=== PATIENT | male | born 1965 | race Caucasian/White ===

== ENCOUNTER 2017-01-17 14:38 | Inpatient (IN) | payer OTHER ==
[~2017-01-17] VITALS: Ht 188 cm; Wt 93.0 kg
[2017-01-17] MEDS ORDERED: ASPIRIN 325 MG TAB PO STA (15:24)
[2017-01-17] MEDS ORDERED: NITROGLYCERIN (SL) 0.4 MG TAB SL PRN (15:30)
--- NOTE | 2017-01-17 15:37 | ERA ---
ER Documentation Chief Complaint Date/Time DATE: 01/17/17 TIME: 15:37 Chief Complaint 6/10 CP and sob x 4 hours HPI This is a 51-year-old female with a history of gastroesophageal reflux disease and hypertension who presents to the emergency department complaining of a sudden onset of chest pressure that occurred roughly 4 hours prior to arrival. The patient states the chest pain is nonexertional. He works as a nurse at [email or web address] and indicates while at work sitting down he developed a sudden onset of chest pressure that did not radiate to the neck arm back or jaw. He stated was 6 out of 10 in intensity. It associated symptoms of shortness of breath and has not experienced any recent travel or prolonged immobilization and no calf tenderness or swelling. He has been compliant with all of his medications. He has no family history of coronary artery disease in his first-degree relatives. The patient does not smoke tobacco. He has had a previous cholecystectomy, tonsillectomy and rhinoplasty with respect to his past surgical history. He denies any fever shaking or chills. Denies any recent remote blunt or penetrating chest trauma. He states he has never had any similar symptoms in the past. The patient did undergo a cardiac stress test roughly 4 years ago ROS All systems reviewed and are negative except as per history of present illness. Medications Home Meds Reported Medications Emtricitabine-Tenofovir* (Truvada*) 200-300 Mg Tablet, 1 TAB PO DAILY, TAB 01/17/17 Tadalafil (Cialis) 5 Mg Tablet, 5 MG PO DAILY, TAB 01/17/17 Esomeprazole Mag Trihydrate (Nexium) 40 Mg Capsule.dr, 40 MG PO DAILY, #30 CAP 01/17/17 Hydrochlorothiazide* (Hydrochlorothiazide*) 12.5 Mg Tablet, 12.5 MG PO DAILY, # 30 TAB 01/17/17 Ramipril (Ramipril) 5 Mg Capsule, 5 MG PO DAILY, CAP 01/17/17 Loratadine* (Loratadine*) 10 Mg Tablet, 10 MG PO DAILY, #30 TAB 01/17/17 Ranitidine Hcl* (Ranitidine Hcl*) 300 Mg Tablet, 300 MG PO HS, #30 TAB 01/17/17 Allergies Allergies: Uncoded Allergies: ERYTHTHOMYCIN (Allergy, Unknown, 01/17/17) PMhx/Soc History of Surgery: Yes (GALLBLADDER SURGERY) Anesthesia Reaction: No Hx Neurological Disorder: No Hx Respiratory Disorders: No Hx Cardiac Disorders: No Hx Psychiatric Problems: No Hx Miscellaneous Medical Probl: No Hx Alcohol Use: Yes (OCCASIONALLY) Hx Substance Use: No Hx Tobacco Use: No Smoking Status: Never smoker Physical Exam Vitals Vital Signs Date Time Temp Pulse Resp B/P Pulse Ox O2 Delivery O2 Flow Rate FiO2 01/17/17 16:55 49 14 130/88 97 Nasal Cannula 3.0 01/17/17 14:39 98.3 57 20 127/77 98 Physical Exam Constitutional:Well-developed. Well-nourished. HEENT:Normocephalic. Atraumatic.Pupils were equal round reactive to light. Moist mucous membranes.No tonsillar exudates. Neck: No nuchal rigidity. No lymphadenopathy. No posterior cervical spine tenderness or step-offs. Respiratory: Not using accessory muscles of respiration.Lungs were clear to auscultation bilaterally. No rhonchi. No rales. No wheezing. Cardiovascular: Regular rate regular rhythm.No murmurs. No rubs were appreciated.S1, S2 normal. Distal pulses are palpable 2+ bilaterally. GI: Abdomen was soft. Nontender. Non Distended. No pulsatile abdominal masses or bruits. No rebound. No guarding. Bowel sounds were present and normal. Muscle skeletal: Full range of motion of both the upper and lower extremities bilaterally.Normal muscle tone.No assymetrical calf tenderness or swelling. Skin: No petechia, no purpura. No lesions on the palms or the soles of the feet. No maculopapular rash. NEURO: Patient was alert, awake, orientated x3.No facial droop. Gait observed and normal with no ataxia.Speech had regular rate and rhythm. No focal neurological deficits. Result Diagram: 01/17/17 1530 01/17/17 1530 Results 24 hrs Laboratory Tests Test 01/17/17 15:30 White Blood Count 6.810^3/ul Red Blood Count 4.6710^6/ul Hemoglobin 15.5g/dl Hematocrit 43.8% Mean Corpuscular Volume 93.8fl Mean Corpuscular Hemoglobin 33.2pg Mean Corpuscular Hemoglobin Concent 35.4g/dl Red Cell Distribution Width 12.4% Platelet Count 53085^3/UL Mean Platelet Volume 11.2fl Neutrophils % 50.7% Lymphocytes % 36.4% Monocytes % 9.5% Eosinophils % 2.5% Basophils % 0.6% Nucleated Red Blood Cells % 0.0/100WBC Neutrophils # 3.510^3/ul Lymphocytes # 2.510^3/ul Monocytes # 0.710^3/ul Eosinophils # 0.210^3/ul Basophils # 0.010^3/ul Nucleated Red Blood Cells # 0.010^3/ul Prothrombin Time 13.2Sec Prothrombin Time Ratio 1.0 INR International Normalized Ratio 1.00 Activated Partial Thromboplast Time 27.9Sec D-Dimer < 220.00ng/ml D-Dimer Comment Sodium Level 144mmol/L Potassium Level 3.6mmol/L Chloride Level 100mmol/L Carbon Dioxide Level 29mmol/L Anion Gap 19 Blood Urea Nitrogen 7mg/dl Creatinine 0.85mg/dl Glucose Level 75mg/dl Calcium Level 9.8mg/dl Total Bilirubin 0.3mg/dl Direct Bilirubin 0.00mg/dl Indirect Bilirubin 0.3mg/dl Aspartate Amino Transf (AST/SGOT) 58IU/L Alanine Aminotransferase (ALT/SGPT) 89IU/L Alkaline Phosphatase 70IU/L Creatine Kinase 103IU/L Creatine Kinase Index 0.8 Creatinine Kinase MB (Mass) 0.85ng/ml Troponin I < 0.012ng/ml B-Type Natriuretic Peptide 60PG/ML Total Protein 7.9g/dl Albumin 4.8g/dl Globulin 3.10g/dl Albumin/Globulin Ratio 1.54 Current Medications Medications (Trade) Dose Ordered Sig/Jimenez Route PRN Reason Start Time Stop Time Status Last Admin Dose Admin Aspirin (Aspirin) 325 mg ONCE STAT PO 01/17/17 15:24 01/17/17 15:27 DC 01/17/17 15:46 Nitroglycerin (Nitroglycerin (Sl Tab) 0.4 Mg) 1 tab Q5M UP TO 3 DOSES PRN SL CHEST PAIN 01/17/17 15:30 01/17/17 15:47 Ondansetron HCl (Zofran Inj) 4 mg ER BRIDGE PRN IV NAUSEA AND/OR VOMITING 01/17/17 17:00 01/18/17 16:59 Acetaminophen (Tylenol Tab) 650 mg ER BRIDGE PRN PO MILD PAIN/FEVER 01/17/17 17:00 01/18/17 16:59 Procedures/MDM The patient presented to the emergency department with chest pain. My clinical evaluation and workup was to distinguish minor causes of chest pain from acute life threatening conditions such as myocardial infarction, pulmonary embolism, aortic dissection, esophageal rupture, cardiac tamponade. The patient was placed on a library monitor and continuous pulse oximetry. IV access established by nursing staff. The patient received aspirin and nitroglycerin. 12 Lead EKG tracing ordered and reviewed by myself showed: Sinus bradycardia 53 bpm and no arrhythmia. [place] interval normal. QRS duration normal with incomplete right bundle branch block as there was an RSR prime pattern in lead V1 V2 No ST segment elevation No ST segment depression. No changes consistent with acute ischemia. The patient is a low pretest probability according to the well's criteria for pulmonary embolism. Therefore I obtained a d-dimer. The d-dimer was within normal limits and therefore my clinical suspicion was low for pulmonary embolism and I did not feel is necessary at this time to obtain a CT scan of the patient's chest. The patient will be admitted to the hospitalist Dr. Leyva to the telemetry service to receive serial 12-lead EKG tracings and cardiac set of enzymes Departure Diagnosis: Primary Impression: Chest pain Qualified Code: R07.9 - Chest pain, unspecified type Condition: Serious CALVIN FRAUSTO Jan 17, 2017 15:37
[2017-01-17 15:47] LABS: BASOPHILS % 0.6 % (0.0-2.0); EOSINOPHILS # 0.2 10^3/ul (0.0-0.5); EOSINOPHILS % 2.5 % (0.0-7.0); HEMATOCRIT 43.8 % (42.0-52.0); HEMOGLOBIN 15.5 g/dl (14.0-18.0); LYMPHOCYTES # 2.5 10^3/ul (0.8-2.9); LYMPHOCYTES % 36.4 % (15.0-51.0); MEAN CORPUSCULAR HEMOGLOBIN 33.2 pg (29.0-33.0); MEAN CORPUSCULAR HGB CONC 35.4 g/dl (32.0-37.0); MEAN CORPUSCULAR VOLUME 93.8 fl (82.0-101.0); MEAN PLATELET VOLUME 11.2 fl (7.4-10.4); MONOCYTE # 0.7 10^3/ul (0.3-0.9); MONOCYTES % 9.5 % (0.0-11.0); NEUTROPHIL # 3.5 10^3/ul (1.6-7.5); NEUTROPHILS % 50.7 % (39.0-77.0); PLATELET COUNT 265 10^3/UL (140-415); RED BLOOD COUNT 4.67 10^6/ul (4.70-6.10); RED CELL DISTRIBUTION WIDTH 12.4 % (11.5-14.5); WHITE BLOOD COUNT 6.8 10^3/ul (4.8-10.8)
[2017-01-17] MEDS ORDERED: RANI300T PO (15:48)
[2017-01-17] MEDS ORDERED: LORA10TA3 PO (15:49)
[2017-01-17] MEDS ORDERED: RAMI5CAP46 PO (15:49)
[2017-01-17] MEDS ORDERED: TADA5TAB5 PO (15:50)
[2017-01-17] MEDS ORDERED: HYDR12.58 PO (15:50)
[2017-01-17] MEDS ORDERED: ESOM40CA PO (15:50)
[2017-01-17] MEDS ORDERED: EMTR1TAB11 PO (15:51)
--- NOTE | 2017-01-17 16:00 | RADRPT ---
PROCEDURE: XR Chest. CLINICAL INDICATION: Chest pain. TECHNIQUE: Single frontal view. COMPARISON: None. FINDINGS: The lungs are clear. The heart size is normal. There is no pleural effusion. There is no pneumothorax. IMPRESSION: 1. Normal chest radiograph. RPTAT: QQ .Campbell Saunders MD, Date Time Electronically viewed and signed by .Campbell Saunders MD, on 01/17/2017 16:00 .R/
[2017-01-17 16:02] LABS: PROTIME 13.2 Sec (12.2-14.2)
[2017-01-17 16:03] LABS: PARTIAL THROMBOPLASTIN TIME 27.9 Sec (25.0-35.0)
[2017-01-17 16:04] LABS: ALANINE AMINOTRANSFERASE 89 IU/L (13-69); ALBUMIN 4.8 g/dl (3.3-4.9); ALBUMIN/GLOBULIN RATIO 1.54; ALKALINE PHOSPHATASE 70 IU/L (42-121); ANION GAP 19 (8-16); ASPARTATE AMINO TRANSFERASE 58 IU/L (15-46); BILIRUBIN,INDIRECT 0.3 mg/dl (0-1.1); BILIRUBIN,TOTAL 0.3 mg/dl (0.2-1.3); BLOOD UREA NITROGEN 7 mg/dl (7-20); CALCIUM 9.8 mg/dl (8.4-10.2); CARBON DIOXIDE 29 mmol/L (21-31); CHLORIDE 100 mmol/L (97-110); CREATINE KINASE 103 IU/L (23-200); CREATININE 0.85 mg/dl (0.61-1.24); GLUCOSE 75 mg/dl (70-220); POTASSIUM 3.6 mmol/L (3.5-5.1); SODIUM 144 mmol/L (135-144); TOTAL PROTEIN 7.9 g/dl (6.1-8.1)
[2017-01-17 16:16] LABS: B-TYPE NATRIURETIC PEPTIDE 60 PG/ML (0-125)
[2017-01-17 16:17] LABS: CK-MB 0.85 ng/ml (0.0-2.4); TROPONIN-I < 0.012 ng/ml (0.00-0.12)
[2017-01-17 16:53] LABS: D-DIMER < 220.00 ng/ml (<460)
[2017-01-17] MEDS ORDERED: ACETAMINOPHEN 325 MG TAB PO PRN (17:00)
[2017-01-17] MEDS ORDERED: ONDANSETRON 4 MG INJ IV PRN (17:00)
[2017-01-17 18:39] VITALS: TEMP 98.3
--- NOTE | 2017-01-17 18:46 | HP ---
Date/Time of Note Date/Time of Note DATE: 01/17/17 TIME: 18:30 Assessment/Plan VTE Prophylaxis VTE Prophylaxis Intervention: LMWH Lines/Catheters IV [facility] Saline Lock Assessment/Plan Chief Complaint/Hosp Course Mr. Aden is a 51-year-old male with a history of hypertension and GERD who is presenting with an atypical chest pain syndrome. It is unlikely that this is due to coronary ischemia given his atypical symptoms and negative biomarkers. There is no clear alternative explanation to his symptoms however. Coronary vasospasm should be considered. His bradycardia and incomplete right bundle branch block in the setting of chronic orthostasis raise concern for conduction disease however she has never had syncope. Atypical chest pain syndrome: - Monitor on telemetry - Cardiology c/s for consideration of coronary vasopasm. Unlikely to benefit from stress test though can also be considered - Cycle troponins - TTE Resting bradycardia - TSH Hypertension: - Can continue home meds: HCTZ 12.5 and ramipril 5 Transaminitis: - Unclear etiology, will trend LFTs and check viral serologies GERD: - Continue ranitidine and PPI Discharge to self care likely tomorrow Problems: HPI/ROS Admit Date/Time Admit Date/Time Hx of Present Illness Mr. Aden is a 51-year-old male with a history of GERD and hypertension who presents with chest pain syndrome which started this afternoon. The patient is an employee of [employer]. He was at work today when he began to feel the onset of what he describes as spasms in his chest lasting a few seconds at a time these were associated with mild shortness of breath he cannot identify any exacerbating or alleviating factors. The pain is present at rest including when I spoke with him in the emergency room. The patient describes excellent exercise tolerance. He works out at the gym most days of the week most recently 2 days ago. He also describes subjective orthostasis chronically saying he often feels dizzy when he stands and he is known to have a low resting heart rate. He has never had syncope. He denies any recent illness and has otherwise felt well recently. PMH/Family/Social Past Medical History Medical History: GERD, hypertension Past Surgical History Past Surgical Hx: noncontributory Family History Significant Family History: no pertinent family hx Social History Alcohol Use: none Smoking Status: Never smoker Drug Use: none Exam/Review of Systems Vital Signs Vitals Vital Signs Date Time Temp Pulse Resp B/P Pulse Ox O2 Delivery O2 Flow Rate FiO2 01/17/17 16:55 49 14 130/88 97 Nasal Cannula 3.0 01/17/17 14:39 98.3 Exam Exam The patient appears very well on exam. He is resting in no acute distress. He is alert and oriented 3. He is pleasant and conversational. He has flat neck veins. His heart rate is bradycardic and regular. There are no abnormal heart sounds. He has no chest wall tenderness. His lungs are clear to auscultation bilaterally and his breathing pattern is nonlabored. His abdomen is soft and nontender. He has no peripheral edema. Labs Result Diagram: 01/17/17 1530 01/17/17 1530 Medications Medications Current Medications Enoxaparin Sodium (Lovenox) 40 mg DAILY SC ; Start 01/18/17 at 09:00; Status UNV Procedures Procedures EKG: Sinus bradycardia, incomplete RBBB, no ST changes or TWI NICOLE MAJOR MD Jan 17, 2017 18:40
[2017-01-17 19:44] LABS: HAAIG REFLEX REFLEX FILED
[2017-01-17 20:29] LABS: D-DIMER < 220.00 ng/ml (<460)
[2017-01-17 20:58] LABS: HEPATITIS B CORE ANTIBODY NEGATIVE (NEGATIVE)
[2017-01-17] MEDS ORDERED: RANITIDINE 150 MG TAB PO SCH (21:00)
[2017-01-17 21:14] VITALS: PULSE 45
[2017-01-17 21:37] VITALS: BP 121/81; RESP 18
[2017-01-17 21:38] VITALS: Ht 188 cm; Wt 93.0 kg
[2017-01-18] VITALS (10 sets, daily range): BP systolic 107–121; BP diastolic 66–74; PULSE 44–55; RESP 18–20
[2017-01-18] MEDS ORDERED: PANTOPRAZOLE (EC) 40 MG TAB PO SCH (06:00)
[2017-01-18 07:58] LABS: BASOPHILS % 0.5 % (0.0-2.0); EOSINOPHILS # 0.2 10^3/ul (0.0-0.5); HEMATOCRIT 41.3 % (42.0-52.0); HEMOGLOBIN 14.4 g/dl (14.0-18.0); LYMPHOCYTES # 2.2 10^3/ul (0.8-2.9); LYMPHOCYTES % 36.5 % (15.0-51.0); MEAN CORPUSCULAR HEMOGLOBIN 33.1 pg (29.0-33.0); MEAN CORPUSCULAR HGB CONC 34.9 g/dl (32.0-37.0); MEAN CORPUSCULAR VOLUME 94.9 fl (82.0-101.0); MEAN PLATELET VOLUME 11.4 fl (7.4-10.4); MONOCYTE # 0.7 10^3/ul (0.3-0.9); MONOCYTES % 11.7 % (0.0-11.0); NEUTROPHIL # 2.9 10^3/ul (1.6-7.5); PLATELET COUNT 262 10^3/UL (140-415); RED BLOOD COUNT 4.35 10^6/ul (4.70-6.10); RED CELL DISTRIBUTION WIDTH 12.4 % (11.5-14.5); WHITE BLOOD COUNT 6.1 10^3/ul (4.8-10.8)
[2017-01-18 08:20] LABS: CREATINE KINASE 74 IU/L (23-200)
[2017-01-18 08:23] LABS: ALBUMIN 3.8 g/dl (3.3-4.9); BILIRUBIN,INDIRECT 0.3 mg/dl (0-1.1); BILIRUBIN,TOTAL 0.3 mg/dl (0.2-1.3); TOTAL PROTEIN 6.2 g/dl (6.1-8.1)
[2017-01-18 08:40] LABS: CK-MB 0.51 ng/ml (0.0-2.4); TROPONIN-I < 0.012 ng/ml (0.00-0.12)
[2017-01-18 08:50] LABS: ALBUMIN/GLOBULIN RATIO 1.6; BILIRUBIN,INDIRECT 0.2 mg/dl (0-1.1); BILIRUBIN,TOTAL 0.2 mg/dl (0.2-1.3); CALCIUM 9.3 mg/dl (8.4-10.2); CHOL/HDL RATIO 4.8 RATIO; CREATININE 0.89 mg/dl (0.61-1.24); POTASSIUM 4.3 mmol/L (3.5-5.1); TOTAL PROTEIN 6.5 g/dl (6.1-8.1)
[2017-01-18] MEDS ORDERED: BENAZEPRIL 20 MG TAB PO SCH (09:00)
[2017-01-18] MEDS ORDERED: ENOXAPARIN 40 MG/0.4 ML SYG SC SCH (09:00)
[2017-01-18] MEDS ORDERED: HYDROCHLOROTHIAZIDE 12.5 MG CAP PO SCH (09:00)
[2017-01-18] MEDS ORDERED: EMTRICITABINE/TENOFOVIR TAB PO SCH (09:00)
[2017-01-18] MEDS ORDERED: LORATADINE 10 MG TAB PO SCH (09:00)
--- NOTE | 2017-01-18 13:56 | RADRPT ---
Echocardiogram Report Patient Name: MIRANDA TOBIN Gender: Male Date: 1965 Study Date: 18-Jan-2017 Java Project Manager: Jairo Sterling [facility] Location: [id number] Ref. Physician: NICOLE MAJOR Quality: Good Procedures: Transthoracic echocardiogram with complete 2D, M-Mode, and doppler examination. Indications: incomplete RBBB. Bradycardia. Atypical Chest Pain. 2D/M Mode Doppler Measurement Value Normal Ranges Measurement Value Normal Ranges LVIDd 2D 4.8 3.5 - 5.6 cm AV Peak Durga 1.3 m/sec LVIDs 2D 2.6 2.1 - 4.1 cm AV Peak PG 7.2 mmHg LVPWd 2D 1.0 0.6 - 1.1 cm LVOT Peak Durga 1.0 m/sec IVSd 2D 1.1 0.6 - 1.1 cm LVOT Peak PG 4.2 mmHg AoR Diam 2D 3.0 2.0 - 3.7 cm MV E Peak Durga 0.6 m/sec EDV 2D 107.6 cm3 MV A Peak Durga 0.5 m/sec ESV 2D 17.9 cm3 MV E/A 1.1 LA Dimen 2D 2.7 2.3 - 4.0 cm MV Decel Time 141 msec MV Decel [place] 4 MV E/A 1.1 TR Peak Durga 2.6 m/sec TR Peak PG 28.0 mmHg RVSP 31.0 mmHg Findings Left Ventricle: Normal left ventricular systolic function. Normal left ventricular cavity size. Normal left ventricular wall thickness. Ejection fraction is visually estimated at 60 %. Right Ventricle: Normal right ventricular size. Normal right ventricular systolic function. Left Atrium: The left atrium is normal in size. Right Atrium: The right atrium is normal in size. Mitral Valve: Mitral valve leaflets appear mildly thickened. Mild mitral annular calcification. Trace mitral regurgitation. Aortic Valve: Normal appearance of the aortic valve. No significant aortic stenosis or insufficiency. Tricuspid Valve: Normal appearance of the tricuspid valve. Estimated peak PA systolic pressure 31 mmHg. There is trace tricuspid regurgitation. Pulmonic Valve: Normal pulmonic valve appearance. There is trace pulmonic regurgitation. Pericardium: Normal pericardium with no significant pericardial effusion. Aorta: Normal aortic root. IVC: Normal size and normal respiratory collapse consistent with normal right atrial pressure. Conclusions Normal left ventricular systolic function. Normal left ventricular cavity size. Normal left ventricular wall thickness. Ejection fraction is visually estimated at 60 %. Normal right ventricular size. Normal right ventricular systolic function. The left atrium is normal in size. The right atrium is normal in size. No significant valvular stenosis or regurgitation seen. Normal pericardium with no significant pericardial effusion. Electronically Signed By: Christo Collazo 18-Jan-2017 13:55:31 -0700 Patient Name: MIRANDA TOBIN Study Date: 18-Jan-2017 [id number]
--- NOTE | 2017-01-18 15:33 | PDOCDIS ---
Discharge Instructions CONDITION Patient Condition: Good HOME CARE INSTRUCTIONS: Diet Instructions: RegularSpecial Diet: regular ACTIVITY: Activity Restrictions: No Restrictions FOLLOW UP/APPOINTMENTS Follow-up Plan Follow up wtih your PMD to follow your liver panel test as well as your blood pressure medications. You should reduce your dose of hydrochlorothiazide as your BP is a bit too low. Return to ED if any concernign symptoms NICOLE MAJOR MD Jan 18, 2017 15:33
--- NOTE | 2017-01-18 15:34 | DS ---
Date/Time of Note Date/Time of Note DATE: 01/18/17 TIME: 15:33 Discharge Summary Admission/Discharge Info Admit Date/Time Jan 17, 2017 at 16:57 Discharge Date/Time Discharge Diagnosis Atypical chest pain Patient Condition: Good Hx of Present Illness Mr. Aden is a 51-year-old male with a history of GERD and hypertension who presents with chest pain syndrome which started this afternoon. The patient is an employee of [employer]. He was at work today when he began to feel the onset of what he describes as spasms in his chest lasting a few seconds at a time these were associated with mild shortness of breath he cannot identify any exacerbating or alleviating factors. The pain is present at rest including when I spoke with him in the emergency room. The patient describes excellent exercise tolerance. He works out at the gym most days of the week most recently 2 days ago. He also describes subjective orthostasis chronically saying he often feels dizzy when he stands and he is known to have a low resting heart rate. He has never had syncope. He denies any recent illness and has otherwise felt well recently. Hospital Course Patient was ruled out for ACS with negative coronary biomarkers. Evaluated by porcelain buildup assistant and cleared for discharge. Advised to reduce dose of HCTZ and follow up with outpatient PMD Home Meds Reported Medications Emtricitabine-Tenofovir* (Truvada*) 200-300 Mg Tablet, 1 TAB PO DAILY, TAB 01/17/17 Tadalafil (Cialis) 5 Mg Tablet, 5 MG PO DAILY, TAB 01/17/17 Esomeprazole Mag Trihydrate (Nexium) 40 Mg Capsule.dr, 40 MG PO DAILY, #30 CAP 01/17/17 Hydrochlorothiazide* (Hydrochlorothiazide*) 12.5 Mg Tablet, 12.5 MG PO DAILY, # 30 TAB 01/17/17 Ramipril (Ramipril) 5 Mg Capsule, 5 MG PO DAILY, CAP 01/17/17 Loratadine* (Loratadine*) 10 Mg Tablet, 10 MG PO DAILY, #30 TAB 01/17/17 Ranitidine Hcl* (Ranitidine Hcl*) 300 Mg Tablet, 300 MG PO HS, #30 TAB 01/17/17 Primary Care Provider Oscar Kruse MD Time spent on discharge: < 30 minutes Pending Labs Laboratory Tests Test 01/17/17 18:50 01/18/17 07:10 D-Dimer < 220.00ng/ml (<460) D-Dimer Comment Troponin I < 0.012ng/ml (0.00-0.12) < 0.012ng/ml (0.00-0.12) Hepatitis B Surface Antigen NEGATIVE (NEGATIVE) Hepatitis B Core Total Antibody NEGATIVE (NEGATIVE) Hepatitis C Antibody NEGATIVE (NEGATIVE) White Blood Count 6.110^3/ul (4.8-10.8) Red Blood Count 4.3510^6/ul (4.70-6.10) Hemoglobin 14.4g/dl (14.0-18.0) Hematocrit 41.3% (42.0-52.0) Mean Corpuscular Volume 94.9fl (82.0-101.0) Mean Corpuscular Hemoglobin 33.1pg (29.0-33.0) Mean Corpuscular Hemoglobin Concent 34.9g/dl (32.0-37.0) Red Cell Distribution Width 12.4% (11.5-14.5) Platelet Count 90451^3/UL (140-415) Mean Platelet Volume 11.4fl (7.4-10.4) Neutrophils % 48.0% (39.0-77.0) Lymphocytes % 36.5% (15.0-51.0) Monocytes % 11.7% (0.0-11.0) Eosinophils % 3.0% (0.0-7.0) Basophils % 0.5% (0.0-2.0) Nucleated Red Blood Cells % 0.0/100WBC (0.0-0.0) Neutrophils # 2.910^3/ul (1.6-7.5) Lymphocytes # 2.210^3/ul (0.8-2.9) Monocytes # 0.710^3/ul (0.3-0.9) Eosinophils # 0.210^3/ul (0.0-0.5) Basophils # 0.010^3/ul (0.0-0.1) Nucleated Red Blood Cells # 0.010^3/ul (0.0-0.0) Sodium Level 144mmol/L (135-144) Potassium Level 4.3mmol/L (3.5-5.1) Chloride Level 102mmol/L (97-110) Carbon Dioxide Level 28mmol/L (21-31) Anion Gap 18 (8-16) Blood Urea Nitrogen 14mg/dl (7-20) Creatinine 0.89mg/dl (0.61-1.24) Glucose Level 98mg/dl (70-220) Hemoglobin A1c 5.3% (0-5.9) Calcium Level 9.3mg/dl (8.4-10.2) Total Bilirubin 0.2mg/dl (0.2-1.3) Direct Bilirubin 0.00mg/dl (0.00-0.20) Indirect Bilirubin 0.2mg/dl (0-1.1) Aspartate Amino Transf (AST/SGOT) 51IU/L (15-46) Alanine Aminotransferase (ALT/SGPT) 74IU/L (13-69) Alkaline Phosphatase 61IU/L (42-121) Creatine Kinase 74IU/L (23-200) Creatine Kinase Index 0.7 Creatinine Kinase MB (Mass) 0.51ng/ml (0.0-2.4) Total Protein 6.5g/dl (6.1-8.1) Albumin 4.0g/dl (3.3-4.9) Globulin 2.50g/dl (1.3-3.2) Albumin/Globulin Ratio 1.60 Triglycerides Level 201mg/dl (0-149) Cholesterol Level 111mg/dl (100-200) LDL Cholesterol, Calculated 48mg/dl HDL Cholesterol 23mg/dl (28-71) Cholesterol/HDL Ratio 4.8RATIO Thyroid Stimulating Hormone (TSH) 2.590MIU/L (0.465-4.680) NICOLE MAJOR MD Jan 18, 2017 15:34
--- NOTE | 2017-01-18 15:56 | CONS ---
Date/Time of Note Date/Time of Note DATE: 01/18/17 TIME: 15:52 Assessment/Plan Assessment/Plan Additional Assessment/Plan Chest discomfort Sinus bradycardia Hypertension Preserved ejection fraction -Patient's symptoms of chest discomfort are spasm-like lasting for 1 second not associated with activity. He denies any symptoms with exercise. Serial cardiac enzymes have remained negative, ECG without any significant ischemic abnormalities and echocardiogram within normal limits. Patient was sinus bradycardia noted on telemetry but remains asymptomatic. His symptoms do not appear cardiac in origin. In regards to his blood pressure, would recommend decreasing his hydrochlorothiazide to 6.25 mg given his inpatient blood pressure trend. Would consider GI workup. No further inpatient cardiac workup needed at the current time. Consultation Date/Type/Reason Admit Date/Time Type of Consultation: cv Reason for Consultation Chest pain Hx of Present Illness This is a 51-year-old male with past medical history of hypertension who presents with chest pain. Patient states discomfort began yesterday. Patient feels 1 second of quick spasm-like sensation in his chest which resolves. Symptoms were intermittent yesterday. They are happening more frequently and because that he became concerned and came to the emergency room for further evaluation and care. He denies exertional chest pain or shortness of breath. He is active, he does exercise every other day with cardiovascular and weightlifting with no exertional chest pain or shortness of breath. He does complain of occasional episodes of feeling lightheaded with standing up. He does have a history of GERD and is on medications. 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/Review of Systems Vital Signs Vitals Vital Signs Date Time Temp Pulse Resp B/P Pulse Ox O2 Delivery O2 Flow Rate FiO2 01/18/17 15:11 97.9 53 18 108/66 95 01/17/17 20:08 Room Air 3.0 Nasal Cannula Intake and Output 01/17/17 01/17/17 01/18/17 15:00 23:00 07:00 Intake Total 500 ml Balance 500 ml Exam No apparent distress Constitutional: alert, oriented, well developed Head: normocephalic Neck: supple Respiratory: clear to auscultation, normal air movement Cardiovascular: other (S1-S2 heard, no murmurs appreciated), regular rate and rhythm Gastrointestinal: bowel sounds, non-tender, other (No guarding), soft Extremities: other (No edema) Results Result Diagram: 01/18/17 0710 01/18/17 0710 Results 24 hrs Laboratory Tests Test 01/17/17 18:50 01/18/17 07:10 D-Dimer < 220.00 D-Dimer Comment Troponin I < 0.012 < 0.012 Hepatitis B Surface Antigen NEGATIVE Hepatitis B Core Total Antibody NEGATIVE Hepatitis C Antibody NEGATIVE White Blood Count 6.1 Red Blood Count 4.35 L Hemoglobin 14.4 Hematocrit 41.3 L Mean Corpuscular Volume 94.9 Mean Corpuscular Hemoglobin 33.1 H Mean Corpuscular Hemoglobin Concent 34.9 Red Cell Distribution Width 12.4 Platelet Count 262 Mean Platelet Volume 11.4 H Neutrophils % 48.0 Lymphocytes % 36.5 Monocytes % 11.7 H Eosinophils % 3.0 Basophils % 0.5 Nucleated Red Blood Cells % 0.0 Neutrophils # 2.9 Lymphocytes # 2.2 Monocytes # 0.7 Eosinophils # 0.2 Basophils # 0.0 Nucleated Red Blood Cells # 0.0 Sodium Level 144 Potassium Level 4.3 Chloride Level 102 Carbon Dioxide Level 28 Anion Gap 18 H Blood Urea Nitrogen 14 Creatinine 0.89 Glucose Level 98 Hemoglobin A1c 5.3 Calcium Level 9.3 Total Bilirubin 0.2 Direct Bilirubin 0.00 Indirect Bilirubin 0.2 Aspartate Amino Transf (AST/SGOT) 51 H Alanine Aminotransferase (ALT/SGPT) 74 H Alkaline Phosphatase 61 Creatine Kinase 74 Creatine Kinase Index 0.7 Creatinine Kinase MB (Mass) 0.51 Total Protein 6.5 Albumin 4.0 Globulin 2.50 Albumin/Globulin Ratio 1.60 Triglycerides Level 201 H Cholesterol Level 111 LDL Cholesterol, Calculated 48 HDL Cholesterol 23 L Cholesterol/HDL Ratio 4.8 Thyroid Stimulating Hormone (TSH) 2.590 Medications Medications Current Medications Enoxaparin Sodium (Lovenox) 40 mg DAILY SC Last administered on 01/18/17 08:22 ; Admin Dose 40 MG; Start 01/18/17 at 09:00 Emtricitabine/ Tenofovir (Truvada) 1 tab DAILY PO Last administered on 08:15; Admin Dose 1 TAB; Start 01/18/17 at 09:00 Hydrochlorothiazide (Hydrochlorothiazide) 12.5 mg DAILY PO Last administered on 01/18/17 08:15; Admin Dose 12.5 MG; Start 01/18/17 at 09:00 Loratadine (Claritin) 10 mg DAILY PO Last administered on 01/18/17 08:15; Admin Dose 10 MG; Start 01/18/17 at 09:00 Ranitidine HCl (Zantac) 300 mg HS PO Last administered on 01/17/17 22:21; Admin Dose 300 MG; Start 01/17/17 at 21:00 Pantoprazole (Protonix Tab) 40 mg DAILY@06 PO Last administered on 01/18/17 06 :28; Admin Dose 40 MG; Start 01/18/17 at 06:00 Benazepril HCl (Lotensin) 20 mg DAILY PO Last administered on 01/18/17 08:16; Admin Dose 20 MG; Start 01/18/17 at 09:00 Procedures Procedures ECG demonstrates sinus bradycardia at 47 bpm, incomplete right bundle branch block, QRS 106 ms, no significant ischemic ST wave abnormalities Christo Collazo DO Jan 18, 2017 15:56
== END 2017-01-18 16:30 | disposition home or self-care (01) | DRG 313 ==
LOC: EEVIPCON 14:38 → E/R 14:38 → TEL 16:57
PROVIDERS: ADMIT Internal Medicine; ATTEND Internal Medicine
DX: R07.9 Chest pain, unspecified (principal); I10 Essential (primary) hypertension; R06.02 Shortness of breath; K21.9 Gastro-esophageal reflux disease without esophagitis; I45.10 Unspecified right bundle-branch block; R00.1 Bradycardia, unspecified
CPT/HCPCS: 36415; 71010; 80053; 80061; 80076; 82550; 82553; 83036; 83880; 84443; 84484; 85025; 85378; 85610; 85730; 86704; 86709; 86803; 87340; 93005; 93306; J1650